=== PATIENT | female | born 1940 | race Caucasian/White ===

== ENCOUNTER 2017-03-14 18:05 | Emergency (ER) | payer MEDICARE, MEDICAID ==
[~2017-03-14] VITALS: Ht 170.2 cm; Wt 77.1 kg
[~2017-03-14 18:05] MED LIST: ALBU8.5H8 IH; ALEN70TA45 PO; ASCO-340 PO; ASPI-605 PO; AZEL137S7 EA NOSTRIL; CALC-89 PO; CHOL100062 PO; CICL15CR12 TP; CYAN10009 PO; DONE10TA11 PO; ESCI20TA PO; ESOM40CA PO; ESTR42.5 VG; FERR-38 PO; FOLI1TAB16 PO; HYDR-4075 PO; HYDR-4076 PO; LEVO5TAB29 PO; LORA0.5T PO; MEMA10TA PO; METH2.5T PO; MONT10TA22 PO; NAPR500T3 PO; OLOP5DRO EACHEYE; PRAV40TA3 PO; SOLI5TAB2 PO; TRAZ-144 PO; VALS80TA2 PO; VIT1CAPS9 PO
[2017-03-14] MEDS ORDERED: BACI3.5O23 TOP (18:42)
[2017-03-14] MEDS ORDERED: FLUT16SP2 NS (18:42)
[2017-03-14] MEDS ORDERED: DICL100G16 TP (18:42)
[2017-03-14] MEDS ORDERED: CYCL30DR OP (18:42)
[2017-03-14] MEDS ORDERED: RISP3TAB14 PO (18:42)
[2017-03-14] MEDS ORDERED: FLUT1DIS28 IH (18:42)
[2017-03-14 19:44] LABS: *BILIRUBIN,URIN NEGATIVE (NEGATIVE); *BLOOD, URINE NEGATIVE (NEGATIVE); *COLOR,URINE YELLOW (YELLOW); *KETONES,URINE NEGATIVE (NEGATIVE); *PROTEIN,URINE NEGATIVE (NEGATIVE); *UROBILINOGEN,URINE 0.2 E.U./dl (NORMAL); LEUKOCYTE ESTERASE ,URINE 1+ (NEGATIVE); NITRITE, URINE NEGATIVE (NEGATIVE); UGLUCOSE NEGATIVE (NEGATIVE)
[2017-03-14 19:57] LABS: *CLARITY,URINE HAZY (CLEAR)
[2017-03-14 19:59] LABS: BACTERIA,URINE MANY /HPF (NONE SEEN); RBC,URINE 0-3 /HPF (0-3); SQUAMOUS EPITHELIAL CELL,UR FEW /HPF (NONE SEEN); WBC,URINE 20-50 /HPF (0-3)
[2017-03-14] MEDS: PHENAZOPYRIDINE HCL 100 MG TABLET PO ONE (20:52)
[2017-03-14] MEDS: CEFTRIAXONE 1 G VIAL IM ONE (20:55)
--- NOTE | 2017-03-14 20:56 | NUR ---
Patient discharged to home in stable conditon. Written and verbal after care instructions given. Patient verbalizes understanding of instructions.
[2017-03-14] MEDS ORDERED: CEFTRIAXONE 1 G VIAL ONE (21:01)
[2017-03-14] MEDS ORDERED: PHENAZOPYRIDINE HCL 100 MG TABLET ONE (21:01)
[2017-03-14] MEDS ORDERED: LIDOCAINE HCL 1% 20 ML VIAL ONE (21:01)
== END 2017-03-14 20:57 | disposition home or self-care (01) ==
LOC: ER 18:06
DX: N30.90 Cystitis, unspecified without hematuria (principal); I10 Essential (primary) hypertension; J45.909 Unspecified asthma, uncomplicated; M19.90 Unspecified osteoarthritis, unspecified site; F32.9 Major depressive disorder, single episode, unspecified; F41.9 Anxiety disorder, unspecified; Z79.82 Long term (current) use of aspirin; Z88.1 Allergy status to other antibiotic agents
CPT/HCPCS: 81001; 87086; 96372; 99284; A4663; J0696; J3490

== ENCOUNTER 2017-05-25 01:50 | Emergency (ER) | payer MEDICARE, MEDICAID ==
[~2017-05-25] VITALS: Ht 170.2 cm; Wt 78.9 kg
[~2017-05-25 01:50] MED LIST changes: +BACI3.5O23 TOP; -CYAN10009 PO; +CYCL30DR OP; +DICL100G16 TP; -ESTR42.5 VG; -FERR-38 PO; +FLUT16SP2 NS; +FLUT1DIS28 IH; -NAPR500T3 PO; +NAPR500T4 PO; +RISP3TAB14 PO; -VIT1CAPS9 PO
--- NOTE | 2017-05-25 02:50 | NUR ---
PT AND FAMILY DECIDED AFTER VS WERE TAKEN THAT PT FELT BETTER AND THEY WANTED TO LEAVE.EXPLAINED TO THEM IF THEY CHANGED THEIR MIND LATER TO COME BACK
== END 2017-05-25 02:50 | disposition left against medical advice (07) ==
LOC: ER 01:51
DX: Z53.21 Procedure and treatment not carried out due to patient leaving prior to being seen by health care provider (principal)
CPT/HCPCS: A4663

== ENCOUNTER 2018-04-18 12:35 | Emergency (ER) | payer MEDICARE, MEDICAID ==
[~2018-04-18] VITALS: Ht 170.2 cm; Wt 79.4 kg
[~2018-04-18 12:35] MED LIST changes: -ALEN70TA45 PO; +ALEN70TA6 PO; +NAPR-1009 PO; -NAPR500T4 PO; -TRAZ-144 PO; +TRAZ-182 PO
--- NOTE | 2018-04-18 13:13 | NUR ---
PT IS IN ROOM #2B. DR HYATT EVALUATED THE PT.
--- NOTE | 2018-04-18 14:29 | NUR ---
PT WAS D/C TO HOME. D/C INSTRUCTIONS GIVEN TO THE PT.
[2018-04-18 14:30] VITALS: BP 141/72
== END 2018-04-18 14:31 | disposition home or self-care (01) ==
LOC: ER 12:37
DX: J09.X2 Influenza due to identified novel influenza A virus with other respiratory manifestations (principal); I10 Essential (primary) hypertension; J45.909 Unspecified asthma, uncomplicated; Z88.1 Allergy status to other antibiotic agents; Z79.51 Long term (current) use of inhaled steroids; Z79.891 Long term (current) use of opiate analgesic; Z79.899 Other long term (current) drug therapy; Z79.82 Long term (current) use of aspirin
CPT/HCPCS: 71045; 87400; 93005; A4663